=== PATIENT | male | born 1940 | race Caucasian/White ===

== ENCOUNTER 2020-12-17 11:43 | Emergency (ER) | payer BC, MEDICARE ==
[~2020-12-17] VITALS: Ht 182.9 cm; Wt 96.1 kg
[2020-12-17 12:18] LABS: ABG pH (ARTERIAL) 7.339 UNITS (7.350-7.450)
[2020-12-17 12:19] LABS: ABG HCO3 31.3 MEQ/L (22.0-26.0); ABG O2 SATURATION 98.9 % (95.0-99.0); ABG PARTIAL PRESSURE CO2 59.5 mmHg (35.0-45.0); ABG PARTIAL PRESSURE O2 154.7 mmHg (75.0-100.0); ABG STANDARD HCO3 28.1 MEQ/L (22.0-26.0); ABG TOTAL CO2 33.1 MEQ/L (23.0-31.0)
[2020-12-17 12:22] LABS: BASO % 0.3 % (0.0-1.0); EOS # 0.2 10^3/uL (0.0-0.5); EOS % 1.6 % (0.0-3.0); HEMATOCRIT 42.6 % (42.0-52.0); HEMOGLOBIN 12.7 g/dl (13.5-17.5); LYMPH # 0.8 10^3/uL (1.5-5.0); MEAN CORPUSCULAR HEMOGLOBIN 29.3 pg (27.0-33.0); MEAN CORPUSCULAR HGB CONC 29.8 g/dl (32.0-36.5); MEAN CORPUSCULAR VOLUME 98.4 fl (80.0-96.0); MONO # 0.9 10^3/uL (0.0-0.8); MONO % 10.1 % (2.0-8.0); NEUTROPHILS # 7.2 10^3/uL (1.5-8.5); NEUTROPHILS % 78.5 % (36.0-66.0); PLATELET COUNT, AUTOMATED 230 10^3/uL (150-450); RED BLOOD COUNT 4.33 10^6/uL (4.30-6.10); WHITE BLOOD COUNT 9.2 10^3/uL (4.0-10.0)
[2020-12-17] MEDS ORDERED: LABETALOL 100MG/20ML VIAL IV STA (12:39)
[2020-12-17] MEDS ORDERED: FUROSEMIDE 40MG/4ML VIAL (J1940) IV ONE (12:40)
[2020-12-17 12:41] LABS: INR 2.9
[2020-12-17] MEDS ORDERED: FUROSEMIDE 40MG/4ML VIAL (J1940) As Ordered ONE (12:41)
[2020-12-17 12:42] LABS: PARTIAL THROMBOPLASTIN TIME 56.6 SECONDS (24.2-38.5)
--- NOTE | 2020-12-17 12:44 | REP ---
INDICATION: altered mental status COMPARISON: None. TECHNIQUE: Axial noncontrast images from the skull base to the thoracic inlet with coronal reformations. This CT examination was performed using the following dose reduction techniques: Automated exposure control, adjustment of mA and/or kv according to the patient's size, and use of iterative reconstruction technique. FINDINGS: Atrophy with periventricular leukomalacia and microvascular ischemic changes are appreciated. The ventricles and sulci are symmetric. Acosta-white differentiation is maintained. There is no evidence for acute intracranial hemorrhage, mass/mass effect, pathology or infarction. No extra-axial fluid collection. Calvarium is intact. Paranasal sinuses and mastoid air cells are clear. IMPRESSION: Atrophy and microvascular ischemic changes. No acute intracranial hemorrhage, infarction, or mass/mass effect. <Electronically signed by Daniel Grullon > 12/17/20 [id number]
[2020-12-17] MEDS ORDERED: LORazepam 2 MG/ML VIAL As Ordered ONE (12:45)
--- NOTE | 2020-12-17 12:46 | REP ---
INDICATION: CHEST PAIN COMPARISON: None. TECHNIQUE: Portable AP view of the chest FINDINGS: Cardiomegaly. Diffuse bilateral airspace disease. Layering effusions cannot be excluded. No pneumothorax. IMPRESSION: Multifocal infiltrates. <Electronically signed by Daniel Grullon > 12/17/20 [id number]
[2020-12-17 12:58] LABS: ALBUMIN 3.3 GM/DL (3.2-5.2); ALT/SGPT 14 U/L (12-78); BILIRUBIN,DIRECT 0.5 MG/DL (0.0-0.2); BILIRUBIN,TOTAL 2.2 MG/DL (0.2-1.0); BLOOD UREA NITROGEN 19 MG/DL (7-18); CALCIUM LEVEL 9.9 MG/DL (8.8-10.2); CARBON DIOXIDE LEVEL 32 MEQ/L (21-32); CHLORIDE LEVEL 101 MEQ/L (98-107); CK-MB VALUE MASS < 1.0 NG/ML (<3.6); CPK CREATINE PHOSPHOKINASE 24 U/L (39-308); CREATININE FOR GFR 1.01 MG/DL (0.70-1.30); GLOMERULAR FILTRATION RATE > 60.0 (>42); GLUCOSE, FASTING 166 MG/DL (70-100); LIPASE 32 U/L (73-393); MB/CK RELATIVE INDEX 4.17 (< OR =4); NT-PRO BNP 5931 PG/ML (<450); POTASSIUM SERUM 3.9 MEQ/L (3.5-5.1); SODIUM LEVEL 139 MEQ/L (136-145); TOTAL PROTEIN 7.3 GM/DL (6.4-8.2); TROPONIN I < 0.02 NG/ML (< 0.10)
[2020-12-17] MEDS ORDERED: LORazepam 2 MG/ML VIAL IV STA (13:05)
[2020-12-17] MEDS ORDERED: ISOVUE-370 76% 100ML VIAL As Ordered ONE (13:07)
[2020-12-17] MEDS: propofoL 1,000 MG in IV 1 EA IV SCH ×2 (13:08→14:26)
[2020-12-17 13:11] LABS: ABG HCO3 24.7 MEQ/L (22.0-26.0); ABG O2 SATURATION 97.9 % (95.0-99.0); ABG PARTIAL PRESSURE O2 141.3 mmHg (75.0-100.0); ABG STANDARD HCO3 19.6 MEQ/L (22.0-26.0); ABG TOTAL CO2 27.1 MEQ/L (23.0-31.0)
[2020-12-17 13:12] LABS: ABG PARTIAL PRESSURE CO2 77.5 mmHg (35.0-45.0); ABG pH (ARTERIAL) 7.122 UNITS (7.350-7.450)
--- NOTE | 2020-12-17 13:15 | REP ---
INDICATION: eval ET tube COMPARISON: 12/17/2020 TECHNIQUE: Portable AP view of the chest FINDINGS: Endotracheal tube 1.3 cm above the mary approaching the right mainstem bronchus. The mediastinum and cardiac silhouette are stable. The lung curry demonstrate diffuse infiltrates similar to prior examination. Skeletal structures are intact. IMPRESSION: 1. Endotracheal tube approaching the right mainstem bronchus and may warrant repositioning. 2. Diffuse bilateral infiltrates. <Electronically signed by Daniel Grullon > 12/17/20 [id number]
[2020-12-17] MEDS ORDERED: SUCCINYLCHOLINE INJ 200 MG/10 ML VIAL (J0330) IV STA (13:36)
[2020-12-17] MEDS ORDERED: ETOMIDATE INJ 20MG/10ML VIAL IV STA (13:36)
[2020-12-17] MEDS ORDERED: WARF-23 PO (13:42)
[2020-12-17] MEDS ORDERED: SPIR1CAP INH (13:42)
[2020-12-17] MEDS ORDERED: TORS5TAB2 PO (13:42)
[2020-12-17] MEDS ORDERED: TORS10TA3 PO (13:42)
[2020-12-17] MEDS ORDERED: VITMTA PO (13:42)
[2020-12-17] MEDS ORDERED: TORS20TA2 PO (13:42)
[2020-12-17] MEDS ORDERED: GLIM2TAB4 PO (13:42)
[2020-12-17] MEDS ORDERED: SYMB16INH INH (13:42)
[2020-12-17] MEDS ORDERED: metoprolol ER PO (13:42)
[2020-12-17] MEDS ORDERED: ENAL1TAB46 PO (13:42)
[2020-12-17] MEDS ORDERED: LEVO125C PO (13:42)
[2020-12-17] MEDS ORDERED: PROAAER10 INH (13:42)
[2020-12-17] MEDS ORDERED: VASC1CAP2 PO (13:42)
[2020-12-17] MEDS ORDERED: PLAV1TAB2 PO (13:42)
[2020-12-17] MEDS ORDERED: METF10004 PO (13:42)
--- NOTE | 2020-12-17 13:44 | REP ---
INDICATION: CVA. COMPARISON: None. TECHNIQUE: Axial contrast-enhanced images were obtained from the thoracic inlet to the skull base with coronal and sagittal reformations using 100 cc Isovue 370 intravenous contrast material. Maximal intensity projection and multiplanar re-formation images along with 3-D rendered imaging of the arterial vasculature. This CT examination was performed using the following dose reduction techniques: Automated exposure control, adjustment of mA and/or kv according to the patient's size, and the use of iterative reconstruction technique. FINDINGS: Moderate atherosclerotic changes are noted at the visualized thoracic aortic arch and origin to the common carotid arteries as well as moderate partially calcified atheromatous plaquing at the bilateral carotid bulbs and proximal internal carotid arteries without evidence for significant stenosis or occlusion. Surrounding soft tissues of the neck and the visualized osseous structures are intact and normal. Endotracheal tube extending to the level of the mary. Lung apices demonstrate presumed large bilateral pleural effusions and diffuse bilateral infiltrates. Correlation is recommended and findings may reflect underlying CHF. IMPRESSION: 1. Carotid arteries demonstrate scattered atherosclerotic changes without significant stenosis and without occlusion. 2. Endotracheal tube approaches the mary. 3. Visualized lung curry demonstrate presumed large bilateral pleural effusions and diffuse airspace disease raising the possibility of underlying CHF and less likely multifocal pneumonia. <Electronically signed by Daniel Grullon > 12/17/20 [id number]
--- NOTE | 2020-12-17 14:01 | REP ---
INDICATION: CVA. COMPARISON: None. TECHNIQUE: CT contrast dose: 100 ml of intravenous Isovue 370. Axial contrast-enhanced images were obtained from the skull base to the vertex with coronal reformations using 100 cc Isovue 370 intravenous contrast material. Maximal intensity projection and multiplanar re-formation images along with 3-D rendered imaging of the arterial vasculature. FINDINGS: Minimal scattered partially calcified atheromatous plaquing noted primarily involving the bilateral internal carotid arteries through the cavernous siphons. There is no evidence for significant narrowing or occlusion. The [id number] and visualized vertebrobasilar system appear intact and normal. Vasculature to the bilateral hemispheres appear symmetric. No obvious arteriovenous malformation or aneurysm detected. Remainder of the examination appears essentially normal. Incidental near complete opacification of the right maxillary sinus suggesting chronic sinusitis and mucosal. IMPRESSION: Scattered atheromatous plaquing without significant narrowing or occlusion. No obvious arteriovenous malformation or aneurysm. Vasculature to the bilateral hemispheres and posterior fossa appear symmetric. <Electronically signed by Daniel Grullon > 12/17/20 [id number]
[2020-12-17 14:40] VITALS: BP 107/71
--- NOTE | 2020-12-17 19:51 | ECGEPIP ---
[facility] - ED Test Date: 2020-12-17 Pat Name: PATO SORENSEN Department: Room: - Gender: Male [employer]: HC : [id number] Requested By: Marcellus Freitas Order Number: [id number] Reading MD: Marcellus Freitas Measurements Intervals [place] Rate: 106 P: PA: QRS: 86 QRSD: 134 T: -9 QT: 382 QTc: 507 Interpretive Statements Atrial fibrillation with rapid ventricular response Right bundle branch block Nonspecific ST T wave changes No prior ECG for comparison Electronically Signed on 12-17-2020 19:51:30 EDT by Marcellus Freitas
== END 2020-12-17 14:40 | disposition short-term general hospital (02) ==
LOC: M ED 11:43 → EDBD 11:43 → M ED 14:40
DX: J96.00 Acute respiratory failure, unspecified whether with hypoxia or hypercapnia (principal); R41.4 Neurologic neglect syndrome; R56.9 Unspecified convulsions; R91.8 Other nonspecific abnormal finding of lung field; I48.91 Unspecified atrial fibrillation; J44.9 Chronic obstructive pulmonary disease, unspecified; Z99.81 Dependence on supplemental oxygen; G47.33 Obstructive sleep apnea (adult) (pediatric); Z79.01 Long term (current) use of anticoagulants; Z79.890 Hormone replacement therapy; Z79.899 Other long term (current) drug therapy
CPT/HCPCS: 31500; 36600; 51702; 70450; 70496; 70498; 71045; 80047; 80048; 80076; 82550; 82553; 82803; 83690; 83880; 84443; 84484; 85025; 85610; 85730; 87798; 93005; 93041; 94760; 96365; 96375; 99291; 99292; J0330; J2060; Q9967